=== PATIENT | female | born 1970 | race Caucasian/White ===

== ENCOUNTER 2024-07-31 11:08 | Inpatient (IN) | payer SELFPAY ==
[~2024-07-31] VITALS: Ht 157.5 cm; Wt 74.8 kg
[2024-07-31 11:19] VITALS: TEMP 98.2
[2024-07-31] MEDS ORDERED: IOPAMIDOL 370 MG/ML 100 ML INFUS..BTL INJ ONE (12:04)
[2024-07-31] MEDS: SODIUM CHLORIDE 0.9% 1000ML 1,000 ML IV SCH (12:12)
[2024-07-31] MEDS ORDERED: CEFTRIAXONE 1 GM VIAL ONE (14:05)
[2024-07-31 14:20] VITALS: PULSE 100; RESP 20
[2024-07-31] MEDS ORDERED: MELATONIN3 MG PO (15:14)
[2024-07-31 16:00] VITALS: BP 175/94; PULSE 98; RESP 19; TEMP 99.5; O2SAT 98
[2024-07-31] MEDS ORDERED: DEXTROSE 50% SYRINGE 50 ML IV PRN (17:00)
[2024-07-31] MEDS ORDERED: SIMETHICONE 80 MG CHEW PO PRN (17:00)
[2024-07-31] MEDS ORDERED: ALBUTEROL/IPRATROPIUM 3 ML NEB NEB PRN (17:00)
[2024-07-31] MEDS ORDERED: MELATONIN 5 MG TABLET PO PRN (17:00)
[2024-07-31] MEDS ORDERED: POTASSIUM CHLORIDE 20 MEQ TAB CR PO PRN (17:00)
[2024-07-31] MEDS ORDERED: BENZONATATE 100 MG CAP PO PRN (17:00)
[2024-07-31] MEDS ORDERED: DOCUSATE SODIUM 100 MG CAP PO PRN (17:00)
[2024-07-31] MEDS: ENOXAPARIN SOD INJ 40 MG/0.4 ML SYR SC SCH (17:00)
[2024-07-31] MEDS ORDERED: DIPHENHYDRAMINE HCL 25 MG CAP PO PRN (17:00)
[2024-07-31] MEDS ORDERED: LIDOCAINE 4% PATCH TP PRN (17:00)
[2024-07-31 18:53] VITALS: BP 175/94; PULSE 98; RESP 19; TEMP 99.5; O2SAT 98
[2024-07-31 20:00] VITALS: BP 152/89; PULSE 99; RESP 18; TEMP 97.3; O2SAT 94
[2024-07-31] MEDS: KETOROLAC TROMETHAMINE 30 MG/ML VIAL IV SCH (21:04)
[2024-07-31] MEDS: ONDANSETRON HCL INJ 2MG/ML 2ML 2 MG/ML VIAL IV PRN (21:04)
[2024-07-31] MEDS: Morphine 2mg Syringe 2 MG/ML SYR IV PRN (21:04)
[2024-07-31] MEDS: POTASSIUM CHLORIDE 20 MEQ TAB CR PO STA (21:05)
[2024-07-31] MEDS: LOSARTAN POTASSIUM 100 MG TAB PO SCH (21:06)
[2024-08-01] VITALS (11 sets, daily range): BP systolic 129–170; BP diastolic 70–98; PULSE 70–100; RESP 17–20; TEMP 97.3–98.9; O2SAT 95–98
[2024-08-01] MEDS: PANTOPRAZOLE SOD 40 MG TABEC PO SCH (09:00)
[2024-08-01 10:24] LABS: BASOPHILS % 0.4 % (0.0-1.0); EOSINOPHILS # (AUTO) 0.1 (0.0-0.4); EOSINOPHILS % 0.8 % (0.0-6.0); HEMATOCRIT 32.1 % (34.2-44.1); HEMOGLOBIN 10.6 g/dL (12.0-16.0); LYMPHOCYTES # (AUTO) 3.4 (1.0-3.2); LYMPHOCYTES % 36.6 % (18.0-39.1); MEAN CORPUSCULAR HEMOGLOBIN 27.9 pg (28-32); MEAN CORPUSCULAR VOLUME 84.5 fL (81-99); MONOCYTES # (AUTO) 0.9 (0.2-0.8); MONOCYTES % 10.3 % (4.4-11.3); NEUTROPHILS # (AUTO) 4.7 (2.1-6.9); NEUTROPHILS % 51.5 % (38.7-80.0); PLATELET COUNT 427 x10e3/uL (140-360); RED CELL DISTRIBUTION WIDTH 13.7 % (11.7-14.4); WHITE BLOOD COUNT 9.15 x10e3/uL (4.8-10.8)
[2024-08-01 10:42] LABS: ANION GAP 14.7 mmol/L (8-16); CREATININE, SERUM 0.72 mg/dL (0.57-1.11); POTASSIUM 3.7 mmol/L (3.5-5.1)
[2024-08-02] VITALS (8 sets, daily range): BP systolic 139–170; BP diastolic 89–108; PULSE 81–108; RESP 17–18; TEMP 97.9–98.4; O2SAT 96–99
[2024-08-02] MEDS: HYDRALAZINE HCL 20 MG/ML VIAL IV PRN (05:31)
[2024-08-02] MEDS: ACETAMINOPHEN 325 MG TAB PO PRN (06:14)
[2024-08-02 08:11] LABS: BASOPHILS # (AUTO) 0.1 (0.0-0.1); BASOPHILS % 0.8 % (0.0-1.0); EOSINOPHILS # (AUTO) 0.1 (0.0-0.4); EOSINOPHILS % 1.8 % (0.0-6.0); HEMATOCRIT 33.8 % (34.2-44.1); HEMOGLOBIN 10.8 g/dL (12.0-16.0); LYMPHOCYTES # (AUTO) 2.1 (1.0-3.2); MEAN CORPUSCULAR HEMOGLOBIN 27.5 pg (28-32); MONOCYTES # (AUTO) 0.3 (0.2-0.8); MONOCYTES % 5.1 % (4.4-11.3); NEUTROPHILS # (AUTO) 3.8 (2.1-6.9); NEUTROPHILS % 59.1 % (38.7-80.0); PLATELET COUNT 524 x10e3/uL (140-360); RED BLOOD COUNT 3.93 x10e6/uL (3.6-5.1); RED CELL DISTRIBUTION WIDTH 13.7 % (11.7-14.4); WHITE BLOOD COUNT 6.49 x10e3/uL (4.8-10.8)
[2024-08-02 08:34] LABS: ANION GAP 16.5 mmol/L (8-16); CALCIUM 9.4 mg/dL (8.4-10.2); CREATININE, SERUM 0.72 mg/dL (0.57-1.11); POTASSIUM 3.5 mmol/L (3.5-5.1)
[2024-08-02] MEDS: KETOROLAC TROMETHAMINE 30 MG/ML VIAL IV STA (12:30)
[2024-08-02] MEDS: SUMATRIPTAN SUCCINATE 6 MG/0.5 ML VIAL SC ONE (14:27)
[2024-08-02] MEDS ORDERED: ACETAMIN/BUTALBITAL/CAFFEINE TAB PO PRN (14:30)
[2024-08-02] MEDS: CARVEDILOL 3.125 MG TAB PO SCH (16:54)
[2024-08-03] MEDS ORDERED: LOSARTAN POTAS100 MG PO (11:44)
[2024-08-03] MEDS ORDERED: COREG3.125 MG PO (11:46)
== END 2024-08-02 19:49 | disposition home or self-care (01) | DRG 872 ==
LOC: FSED 11:14 → ERHOLD 13:12 → MED/SURG3 14:39
PROVIDERS: ADMIT Internal Medicine; ATTEND Internal Medicine
DX: A41.9 Sepsis, unspecified organism (principal); N12 Tubulo-interstitial nephritis, not specified as acute or chronic; N28.89 Other specified disorders of kidney and ureter; E87.6 Hypokalemia; I10 Essential (primary) hypertension; F90.9 Attention-deficit hyperactivity disorder, unspecified type; G43.909 Migraine, unspecified, not intractable, without status migrainosus; K76.0 Fatty (change of) liver, not elsewhere classified; Z79.899 Other long term (current) drug therapy
CPT/HCPCS: 0223U; 36415; 74177; 80048; 80053; 85025; 87040; 87086; 87400; 94799; 99284; J0360; J0696; J1650; J1885; J2270; J2405; J2470; J3030; J7030; Q9967